=== PATIENT | female | born 1980 | race Caucasian/White ===

== ENCOUNTER 2018-08-21 18:52 | Inpatient (IN) | payer MEDICAID ==
[~2018-08-21] VITALS: Ht 160 cm; Wt 97.9 kg
[2018-08-21] MEDS ORDERED: SODIUM CHLORIDE 0.9% 1L BAG IV* STA (19:03)
[2018-08-21] MEDS ORDERED: ACETAMINOPHEN 650MG/20.3ML CUP NGT STA (19:03)
[2018-08-21] MEDS ORDERED: METHYLPREDNISOLONE 125 MG INJ IV STA (19:18)
[2018-08-21] MEDS ORDERED: LEVALBUTEROL (NEB) 1.25 MG/0.5 ML AMP INH STA (19:18)
[2018-08-21] MEDS ORDERED: IPRATROPIUM (NEB) 0.5 MG/2.5 ML AMP NEB STA (19:18)
--- NOTE | 2018-08-21 19:20 | ERD ---
ER Documentation Chief Complaint Chief Complaint sob/asthma x 1 day HPI The patient is a 38-year-old female, presenting to the ER because of acute dyspnea/nasal congestion/sore throat/cough for 1 day. She does not know that she had a fever until she goes to the ER she denies chest pain, abdominal pain, vomiting, dysuria, diarrhea.. She does not smoke, drinks socially, denies illicit drug Medical history: Asthma Past surgical history: None ROS All systems reviewed and are negative except as per history of present illness. Allergies Allergies: Coded Allergies: No Known Drug Allergies (Verified Allergy, Unknown, 08/21/18) Physical Exam Vitals Vital Signs Date Temp Pulse Resp B/P (MAP) Pulse Ox O2 O2 Flow FiO2 Time Delivery Rate 08/21/18 92 2.0 27 19:33 08/21/18 133 22 92 Nasal 2.0 19:29 Cannula 08/21/18 101.9 19:27 08/21/18 101.9 133 26 215/85 91 19:00 (128) Physical Exam Const: No acute distress. Head: Atraumatic. Eyes: Normal Conjunctiva. ENT: Normal External Ears, Nose and Mouth. Neck: Full range of motion. No meningismus. Resp: Bilateral expiratory wheezes, tachypneic Cardio: Regular tachycardic Abd: Soft, non distended, normal bowel sounds, non tender. Skin: No petechiae or rashes. Back: No midline or flank tenderness. Ext: No cyanosis, or edema. No calf tenderness Neur: Awake and alert. No focal deficit Psych: Normal Mood and Affect. Result Diagram: 08/21/18191308/21/181913 Results 24 hrs Laboratory Tests Test 08/21/18 19:14 08/21/18 19:40 08/21/18 19:47 08/21/18 19:59 White Blood Count 16.1 10^3/ul Red Blood Count 4.88 10^6/ul Hemoglobin 12.7 g/dl Hematocrit 40.7 % Mean Corpuscular 83.4 fl Volume Mean Corpuscular 26.0 pg Hemoglobin Mean Corpuscular 31.2 g/dl Hemoglobin Concent Red Cell 14.8 % Distribution Width Platelet Count 403 10^3/UL Mean Platelet 9.0 fl Volume Immature 0.600 % Granulocytes % Neutrophils % 89.2 % Lymphocytes % 6.3 % Monocytes % 2.6 % Eosinophils % 0.8 % Basophils % 0.5 % Nucleated Red Blood 0.0 /100WBC Cells % Immature 0.100 10^3/ul Granulocytes # Neutrophils # 14.4 10^3/ul Lymphocytes # 1.0 10^3/ul Monocytes # 0.4 10^3/ul Eosinophils # 0.1 10^3/ul Basophils # 0.1 10^3/ul Nucleated Red Blood 0.0 10^3/ul Cells # Prothrombin Time 15.1 Sec Prothrombin Time 1.2 Ratio INR International 1.18 Normalized Ratio Activated 27.2 Sec Partial Thromboplas t Time D-Dimer 479.17 ng/ml D-Dimer Comment Sodium Level 136 mmol/L Potassium Level 4.2 mmol/L Chloride Level 101 mmol/L Carbon Dioxide 23 mmol/L Level Anion Gap 12 Blood Urea Nitrogen 5 mg/dl Creatinine 0.61 mg/dl Est Glomerular > 60 mL/min Filtrat Rate mL/min Glucose Level 185 mg/dl Calcium Level 9.0 mg/dl Total Bilirubin 0.7 mg/dl Direct Bilirubin 0.00 mg/dl Indirect Bilirubin 0.7 mg/dl Aspartate Amino 261 IU/L Transf (AST/SGOT) Alanine 120 IU/L Aminotransferase (A LT/SGPT) Alkaline 173 IU/L Phosphatase Troponin I < 0.012 ng/ml Total Protein 8.9 g/dl Albumin 4.2 g/dl Globulin 4.70 g/dl Albumin/Globulin 0.89 Ratio Bedside Urine pH 8.5 (LAB) Bedside Urine 2+ Protein (LAB) Bedside Urine Negative Glucose (UA) Bedside Urine Negative Ketones (LAB) Bedside Urine Blood Trace-intact Bedside Urine Negative Nitrite (LAB) Bedside Urine Trace Leukocyte Esterase (L POC Venous Lactate 2.2 mmol/L POC Beta HCG, NEGATIVE Qualitative Current Medications Medications Dose Sig/Luis Daniel Start Time Status Last (Trade) Ordered Route PRN Stop Time Admin Dose Reason Admin 650 mg ONCE STAT 08/21/18 DC 08/21/18 Acetaminophen NGT 19:03 19:27 (Tylenol 08/21/18 19:05 Liquid) Sodium 1,570 ml BOLUS OVER 2 08/21/18 DC 08/21/18 Chloride HOURS STAT 19:03 19:15 (NS) IV* 08/21/18 19:05 Ipratropium 0.5 mg ONCE STAT 08/21/18 DC 08/21/18 [place] NEB 19:18 19:29 (Atrovent 08/21/18 19:19 0.02% (Neb)) 125 mg ONCE STAT 08/21/18 DC 08/21/18 Methylprednis IV 19:18 19:27 olone Sodium 08/21/18 19:19 Succinate (Solu-Medrol) 1.25 mg ONCE STAT 08/21/18 DC 08/21/18 Levalbuterol INH 19:18 19:29 (Xopenex 08/21/18 19:19 Neb) 1.25 mg Q4H RESP 08/21/18 Levalbuterol THERAPY HHN 21:00 (Xopenex Neb) Ipratropium 0.5 mg Q4H RESP 08/21/18 [place] THERAPY HHN 21:00 (Atrovent 0.02% (Neb)) 30 mg Q12 IV 08/22/18 Methylprednis 06:00 olone Sodium Succinate (Solu-Medrol) 150 ml @ Q24H IVPB 08/21/18 Levofloxacin/ 100 mls/hr 20:00 Dextrose IV Flush 3 ml PER 08/21/18 (NS 3 ml) PROTOCOL IV 20:30 Ondansetron 4 mg Q6H PRN 08/21/18 HCl (Zofran IV 20:30 Inj) NAUSEA/VOMITI NG 650 mg Q6H PRN 08/21/18 Acetaminophen PO .PAIN 1-3 20:30 (Tylenol OR TEMP Tab) Docusate 100 mg Q12H PRN 08/21/18 Sodium PO 20:30 (Colace) .CONSTIPATION Bisacodyl 5 mg DAILY PRN 08/21/18 (Dulcolax) PO 20:30 .CONSTIPATION 40 mg DAILY@06 08/22/18 Pantoprazole PO 06:00 (Protonix Tab) Enoxaparin 40 mg DAILY SC 08/21/18 Sodium 20:30 (Lovenox) 40 mg ONCE ONCE 08/21/18 DC Pantoprazole IV 20:30 (Protonix 08/21/18 20:31 Iv) Ceftriaxone 50 ml @ ONCE ONCE 08/21/18 Sodium 100 mls/hr IVPB 20:30 08/21/18 20:59 Azithromycin 250 ml @ ONCE ONCE 08/21/18 250 mls/hr IVPB 20:30 08/21/18 21:29 Procedures/MDM [facility] [address] [address] Radiology Main Line: [phone] DIAGNOSTIC IMAGING REPORT Patient: AMILCAR WOLFE : 1980 Age: 38 Sex: F MR #: [id number] DOS: 08/21/18 1903 Ordering MD: YASMANY HUBER MD Location: E/R Room/Bed: PROCEDURE: XR Chest. CLINICAL INDICATION: chest pain TECHNIQUE: Single AP view of the chest were obtained COMPARISON: None FINDINGS: The heart and mediastinum are within normal limits. The pulmonary vasculature are unremarkable. The aorta is unremarkable. Ill-defined opacity is suspected in the retrocardiac space. There is a focus of plate atelectasis in the right mid lung. There is no visible effusion and there is no pneumothorax. There is no acute osseous abnormality. IMPRESSION: Suspected retrocardiac area of opacity could represent a focus of pneumonia. Right mid lung plate atelectasis. RPTAT: AA .Mayda Lopez MD, MD Date Time Electronically viewed and signed by .Mayda Lopez MD, MD on 08/21/2018 19:46 .J/ CC: YASMANY HUBER MD [id number] EKG: Read by emergency physician Rate/Rhythm: Sinus tachycardia 126 beats/min QRS, ST, T-waves: No ST elevation, no T inversion, LAE, low voltage Impression: Abnormal EKG MEDICAL MAKING DECISION: The patient is a 38-year-old female, presenting to the ER because of acute severe sepsis, acute pneumonia, acute hypoxemia. She was tr eated with ideal body weight normal saline IV fluid, Rocephin IV and systemic IV for acute sepsis due to pneumonia, Tylenol 650 mg p.o. for fever, Solu-Medrol 125 mg IV, Xopenex 1.25 mg and Atrovent 0.5 mg nebulizer for wheezing with good response. She responded to supplemental oxygen The differential diagnoses considered include but are not limited to asthma, COPD, pneumonia, pulmonary embolus, pleural effusion, congestive heart failure. MDM: Patient's infectious symptoms have not stabilized and the patient is at risk of rapid decompensation. The patient will be admitted for careful hydration, antibiotic therapy, and infectious source control. SEVERE SEPSIS CRITERIA: Infectious source: pna End organ damage indicated by: [Lactate > 2.0 mmol/L Acute Resp Failure (sat < 92% w/o oxygen) SEPSIS MANAGEMENT Time of recognition of severe sepsis: 8p 3 HOUR BUNDLE Blood cultures x 2 before broad-spectrum antibiotics: [Yes] 30 ml/kg NS bolus [Completed] Initial lactate []2.2 Repeat lactate Pending SEPTIC SHOCK ASSESSMENT: [No] lactic acid > 4.0 [No] Persistent hypotension (SBP < 90 or 40 mmHg drop, MAP < 65) despite 30 mL/kg IV fluid bolus CRITICAL CARE Critical care time [35] minutes Emergent fluid management while maintaining close respiratory support. Pr ovision of immediate and broad-spectrum antibiotic therapy. Simultaneous assessment for possible sources in order to direct targeted therapy. Consideration for invasive and chemical support to prevent cardiopulmonary collapse. Critical care time is independent of procedures performed. Departure Diagnosis: Primary Impression: Severe sepsis Additional Impressions: PNA (pneumonia) Hypoxemia Abnormal LFTs Condition: Stable Comments I discussed the findings with the patient. I discussed the patient with Dr Munoz at 8:10p , who was made aware of the lab, the treatment, the patient condition. The patient is admitted to Tel Disclaimer: Inadvertent spelling and grammatical errors are likely due to EHR/dictation software use and do not reflect on the overall quality of patient care. Also, please note that the electronic time recorded on this note does not necessarily reflect the actual time of the patient encounter. YASMANY HUBER MD August 21, 2018 19:20
--- NOTE | 2018-08-21 20:07 | HP ---
Date/Time of Note Date/Time of Note DATE: 08/21/18 TIME: 20:07 Assessment/Plan VTE Prophylaxis SCD applied (from Nsg): Yes Pharmacological prophylaxis: NA/contraindicated Pharm contraindication: low risk/ambulating Lines/Catheters IV Catheter Type (from Nrsg): Saline Lock Assessment/Plan Hospital Course This is a 38-year-old female being admitted to the telemetry floor for: #1 acute on chronic asthma exacerbation: Patient did improve with steroids and nebulizer treatment in the emergency department. Continue nebulizers and steroids. Protonix. IV antibiotics for underlying pneumonia. #2 hypoxia: Likely secondary to underlying asthma exacerbation and concurrent pneumonia. We will check a stat ABG. #3 Severe sepsis: Secondary to underlying community acquired pneumonia. Cultures pending. Patient did receive ceftriaxone and azithromycin in the emergency department. Will initiate the patient on Levaquin 750 mg every 24 hours. Trend lactic acid levels #4 Community aquired pna: levaquin #5 transaminitis: Likely secondary to underlying sepsis, will check a right upper quadrant ultrasound for completeness sake. #6 obesity: We will check hemoglobin A 1C, lipid panel, TSH #7 tobacco use: Patient does smoke occasionally, encourage cessation especially given her underlying asthma #8 DVT and GI prophylaxis: Lovenox, Protonix Further treatment strategy will be implemented as per the clinical course. Result Diagram: 08/21/18191308/21/181913 Results 24hrs Laboratory Tests Test 08/21/18 19:14 08/21/18 19:40 08/21/18 19:47 08/21/18 19:59 White Blood Count 16.1 H Red Blood Count 4.88 Hemoglobin 12.7 Hematocrit 40.7 Mean Corpuscular 83.4 Volume Mean Corpuscular 26.0 L Hemoglobin Mean Corpuscular 31.2 L Hemoglobin Concent Red Cell 14.8 H Distribution Width Platelet Count 403 Mean Platelet 9.0 Volume Immature 0.600 H Granulocytes % Neutrophils % 89.2 H Lymphocytes % 6.3 L Monocytes % 2.6 Eosinophils % 0.8 Basophils % 0.5 Nucleated Red 0.0 Blood Cells % Immature 0.100 H Granulocytes # Neutrophils # 14.4 H Lymphocytes # 1.0 Monocytes # 0.4 Eosinophils # 0.1 Basophils # 0.1 Nucleated Red 0.0 Blood Cells # Prothrombin Time 15.1 H Prothrombin Time 1.2 Ratio INR International 1.18 Normalized Ratio Activated 27.[address] Time D-Dimer 479.17 H D-Dimer Comment Sodium Level 136 Potassium Level 4.2 Chloride Level 101 Carbon Dioxide 23 Level Anion Gap 12 Blood Urea 5 L Nitrogen Creatinine 0.61 Est Glomerular > 60 Filtrat Rate mL/min Glucose Level 185 Calcium Level 9.0 Total Bilirubin 0.7 Direct Bilirubin 0.00 Indirect Bilirubin 0.7 Aspartate Amino 261 H Transf (AST/SGOT) Alanine 120 H Aminotransferase ( ALT/SGPT) Alkaline 173 H Phosphatase Troponin I < 0.012 Total Protein 8.9 H Albumin 4.2 Globulin 4.70 H Albumin/Globulin 0.89 Ratio Bedside Urine pH 8.5 (LAB) Bedside Urine 2+ H Protein (LAB) Bedside Urine Negative Glucose (UA) Bedside Urine Negative Ketones (LAB) Bedside Urine Trace-intact H Blood Bedside Urine Negative Nitrite (LAB) Bedside Urine Trace H Leukocyte Esterase (L POC Venous Lactate 2.2 *H POC Beta HCG, NEGATIVE Qualitative HPI/ROS Admit Date/Time Admit Date/Time Hx of Present Illness Chief complaint: Shortness of breath, sore throat cough This is a 38-year-old female who presented to the ER with complaints of acute dyspnea/nasal congestion/sore throat/cough for 1 day. She does not know that she had a fever until she got to the ER. She does report increased work of breathing. She ran out of her home inhaler. She denies chest pain, abdominal pain, vomiting, dysuria, diarrhea.. She does not smoke, drinks socially, denies illicit drug. She does report having sick contacts at home her daughter. She does not report any recent travel. Allergies: NKDA Medications: See NAGA HURTADO Const: As per HPI Eyes : No pain discharge or redness or change in visual acuity ENT: No pain, sore throat, congestion, congestion, dysphagia or discharge Respiratory: As per HPI Cardiovascular: No chest pain, palpitation, PND, or edema GI : no change in appetite, abdominal pain, nausea, vomiting, diarrhea, constipation, or change in the color his stool Genitourinary: No dysuria, hematuria, flank pain , discharge or CVA tenderness Musculoskeletal: No joint pain, back pain, neck pain, restricted range of motion in neck or joints Skin: No rash, bruising or hives Neuro: No headache, dizziness, syncope, seizure, focal weakness Endocrine: No polyuria, polydipsia, temperature intolerance Psych: No hallucination, depression, anxiety or suicidal ideation PMH/Family/Social Past Medical History Asthma Medications Current Medications Levalbuterol (Xopenex Neb) 1.25 mg Q4H RESP THERAPY HHN ; Start 08/21/18 at 21:00; Status UNV Ipratropium [place] (Atrovent 0.02% (Neb)) 0.5 mg Q4H RESP THERAPY HHN ; Start 08/21/18 at 21:00; Status UNV Methylprednisolone Sodium Succinate (Solu-Medrol) 30 mg Q12 IV ; Start 08/22/18 at 06:00; Status UNV Levofloxacin/ Dextrose 150 ml @ 100 mls/hr Q24H IVPB ; Start 08/21/18 at 20:00; Status UNV Coded Allergies: No Known Drug Allergies (Verified Allergy, Unknown, 08/21/18) Past Surgical History Past Surgical Hx: no surgical history Family History Significant Family History: no pertinent family hx Social History Alcohol Use: occasionally Smoking Status: Current some day smoker Drug Use: none Exam/Review of Systems Vital Signs Vitals Vital Signs Date Temp Pulse Resp B/P (MAP) Pulse Ox O2 O2 Flow FiO2 Time Delivery Rate 08/21/18 92 2.0 27 19:33 08/21/18 133 22 Nasal 19:29 Cannula 08/21/18 101.9 19:27 08/21/18 215/85 19:00 (128) Exam Exam General: Currently lying in bed in no acute distress HEENT: Atraumatic, normocephalic. The pupils are equal, round and reactive. Extraocular motor are intact Neck: Supple with full range of motion. No rigidity or meningismus Chest: Nontender Lungs: Decreased air movement bilaterally, diminished breath sounds bilaterally Heart: Sinus tachycardia Abdomen: Obese, soft , nontender, nondistended , bowel sounds are present. No guarding no rebound tenderness , No masses or organomegaly. No costovertebral temporal angle mass Extremities: Normal to inspection, no edema no cyanosis Neurologic: Normal mental status, speech normal, cranial nerves II through XII are intact, motor and sensory are intact, no focal weakness Additional Comments PROCEDURE: XR Chest. CLINICAL INDICATION: chest pain TECHNIQUE: Single AP view of the chest were obtained COMPARISON: None FINDINGS: The heart and mediastinum are within normal limits. The pulmonary vasculature are unremarkable. The aorta is unremarkable. Ill-defined opacity is suspected in the retrocardiac space. There is a focus of plate atelectasis in the right mid lung. There is no visible effusion and there is no pneumothorax. There is no acute osseous abnormality. IMPRESSION: Suspected retrocardiac area of opacity could represent a focus of pneumonia. Right mid lung plate atelectasis. RPTAT: AA .Mayda Lopez MD, Date Time Electronically viewed and signed by .Mayad Lopez MD, on 08/21/2018 19:46 .J/ CC: YASMANY HUBER MD [id number] TG NEWSOME August 21, 2018 20:07
[2018-08-21] MEDS ORDERED: BISACODYL (EC) 5 MG TAB PO PRN (20:30)
[2018-08-21] MEDS ORDERED: CEFTRIAXONE 1 GM/50 ML (PMX) 50 ML IVPB ONE (20:30)
[2018-08-21] MEDS ORDERED: DOCUSATE SODIUM 100 MG CAP PO PRN (20:30)
[2018-08-21] MEDS ORDERED: PANTOPRAZOLE 40 MG INJ IV ONE (20:30)
[2018-08-21] MEDS ORDERED: ONDANSETRON 4 MG INJ IV PRN (20:30)
[2018-08-21] MEDS ORDERED: AZITHROMYCIN 500MG/NS (PMX) 250 ML IVPB ONE (20:30)
[2018-08-21] MEDS ORDERED: NACL 0.9% 3 ML SYG IV SCH (20:30)
[2018-08-21] MEDS: ENOXAPARIN 40 MG/0.4 ML SYG SC SCH (20:30)
[2018-08-21] MEDS: LEVOFLOXACIN 750MG/D5W (PMX) 150 ML IVPB SCH (20:44)
[2018-08-21] MEDS ORDERED: LORAZEPAM 2 MG INJ IV PRN (21:30)
[2018-08-21] MEDS ORDERED: LEVALBUTEROL (NEB) 1.25 MG/0.5 ML AMP HHN PRN (21:30)
[2018-08-21] MEDS: IPRATROPIUM (NEB) 0.5 MG/2.5 ML AMP HHN SCH (21:57)
[2018-08-21] MEDS: LEVALBUTEROL (NEB) 1.25 MG/0.5 ML AMP HHN SCH (21:57)
[2018-08-21] MEDS: ACETAMINOPHEN 325 MG TAB PO PRN (23:31)
[2018-08-22] VITALS (8 sets, daily range): BP systolic 144–176; BP diastolic 68–76; PULSE 88–112; RESP 16–18; Ht 160 cm; Wt 97.9 kg
[2018-08-22] MEDS: IPRATROPIUM (NEB) 0.5 MG/2.5 ML AMP HHN SCH ×6 (00:39→21:18)
[2018-08-22] MEDS: LEVALBUTEROL (NEB) 1.25 MG/0.5 ML AMP HHN SCH ×6 (00:40→21:18)
[2018-08-22] MEDS: PANTOPRAZOLE (EC) 40 MG TAB PO SCH (06:13)
[2018-08-22] MEDS: ACETAMINOPHEN 325 MG TAB PO PRN ×2 (06:13→17:10)
[2018-08-22] MEDS: METHYLPREDNISOLONE 40 MG INJ IV SCH ×2 (06:13→22:24)
[2018-08-22] MEDS ORDERED: IOHEXOL 100 ML ONE (07:45)
[2018-08-22] MEDS ORDERED: SOD CHLORIDE 0.9% 100 ML ONE (07:45)
[2018-08-22] MEDS: ENOXAPARIN 40 MG/0.4 ML SYG SC SCH (10:19)
[2018-08-22] MEDS ORDERED: GLUCOSE GEL 15 GRAM TUBE PO PRN ×2 (12:00)
[2018-08-22] MEDS ORDERED: GLUCAGON 1 MG INJ IM PRN (12:00)
[2018-08-22] MEDS ORDERED: DEXTROSE 50% 50 ML SYRINGE IV PRN ×2 (12:00)
[2018-08-22] MEDS ORDERED: GLUCOSE GEL 15 GRAM TUBE BUCCAL PRN (12:00)
[2018-08-22] MEDS: INSULIN ASPART [NOVOLOG] 3 ML PEN SC SCH ×3 (12:34→21:00)
--- NOTE | 2018-08-22 16:57 | PN ---
Date/Time of Note Date/Time of Note DATE: 08/22/18 TIME: 16:52 Assessment/Plan VTE Prophylaxis Risk score (from Nsg)>0 risk: 2 SCD applied (from Nsg): Yes Pharmacological prophylaxis: LMWH Lines/Catheters IV Catheter Type (from Nrsg): Saline Lock Assessment/Plan Assessment/Plan Morbidly obese 38-year-old woman with newly diagnosed diabetes admitted for acute pneumonia and asthma exacerbation. # acute asthma exacerbation: Patient did improve with steroids and nebulizer treatment in the emergency department. Continue nebulizers and steroids. Protonix. IV antibiotics for underlying pneumonia. #Diabetes mellitus - By random glucose >200 and elevated HgbA1C - Will ask Nia to see her - Likely discharge on metformin. # Community-acquired pneumonia: #Severe sepsis - Started on levaquin. Will continue this for 5-7 days. # transaminitis: - Likely due to sepsis plus fatty liver. # tobacco use: Patient does smoke occasionally, encourage cessation especially given her underlying asthma # DVT and GI prophylaxis: Lovenox, Protonix Result Diagram: 08/22/18 0749 08/22/18 0748 Subjective 24 Hr Interval Summary Free Text/Dictation No acute overnight events. Patient is feeling better. Wheezing has resolved, now only on 2L NC. Exam/Review of Systems Exam Vitals Vital Signs Date Temp Pulse Resp B/P (MAP) Pulse Ox O2 O2 Flow FiO2 Time Delivery Rate 08/22/18 94 2.0 16:17 08/22/18 103 16:01 08/22/18 98.5 16 152/76 12:07 (101) 08/22/18 Nasal 09:28 Cannula 08/21/18 21 21:58 Exam General: Obese woman in bed, no acute distress. HEENT: Atraumatic, normocephalic. The pupils are equal, round and reactive. Extraocular motor are intact Neck: Supple with full range of motion. No rigidity or meningismus Chest: Nontender Lungs: Mild wheezing bilaterally. Breathing comfortably on nasal cannula. Heart: Sinus tachycardia Abdomen: Obese, soft , nontender, nondistended , bowel sounds are present. No guarding no rebound tenderness , No masses or organomegaly. No costovertebral temporal angle mass Extremities: Normal to inspection, no edema no cyanosis Results Results 24hrs Laboratory Tests Test 08/21/18 19:14 5/27/19 19:40 08/21/18 19:47 08/21/18 19:57 White Blood 16.1 H Count Red Blood Count 4.88 Hemoglobin 12.7 Hematocrit 40.7 Mean Corpuscular 83.4 Volume Mean Corpuscular 26.0 L Hemoglobin Mean Corpuscular 31.2 L Hemoglobin Kathy nt Red Cell 14.8 H Distribution Width Platelet Count 403 Mean Platelet 9.0 Volume Immature 0.600 H Granulocytes % Neutrophils % 89.2 H Lymphocytes % 6.3 L Monocytes % 2.6 Eosinophils % 0.8 Basophils % 0.5 Nucleated Red 0.0 Blood Cells % Immature 0.100 H Granulocytes # Neutrophils # 14.4 H Lymphocytes # 1.0 Monocytes # 0.4 Eosinophils # 0.1 Basophils # 0.1 Nucleated Red 0.0 Blood Cells # Prothrombin Time 15.1 H Prothrombin Time 1.2 Ratio INR 1.18 International Normalized Ratio Activated 27.2 Partial Thrombop last Time D-Dimer 479.17 H D-Dimer Comment Sodium Level 136 Potassium Level 4.2 Chloride Level 101 Carbon Dioxide 23 Level Anion Gap 12 Blood Urea 5 L Nitrogen Creatinine 0.61 Est Glomerular > 60 Filtrat Rate mL/min Glucose Level 185 Calcium Level 9.0 Total Bilirubin 0.7 Direct Bilirubin 0.00 Indirect 0.7 Bilirubin Aspartate Amino 261 H Transf (AST/SGOT ) Alanine 120 H Aminotransferase (ALT/SGPT) Alkaline 173 H Phosphatase Troponin I < 0.012 Total Protein 8.9 H Albumin 4.2 Globulin 4.70 H Albumin/Globulin 0.89 Ratio Bedside Urine pH 8.5 (LAB) Bedside Urine 2+ H Protein (LAB) Bedside Urine Negative Glucose (UA) Bedside Urine Negative Ketones (LAB) Bedside Urine Trace-intact H Blood Bedside Urine Negative Nitrite (LAB) Bedside Urine Trace H Leukocyte Estera se (L POC Venous 2.2 *H Lactate Blood Gas Blood arterial Specimen Source Arterial Blood 08/21/2018 8:55: Date Drawn 24 PM Arterial Blood 7.471 H pH (Temp corrected) Arterial Blood 31.7 L pCO2 (Temp correct) Arterial Blood 54.1 *L pO2 (Temp corrected) Arterial Blood 22.6 HCO3 Arterial Blood -0.3 Base Excess Arterial Blood 89.7 L Oxygen Saturatio n Minh Test ACCEPTAB Arterial Blood Right Radial Gas Puncture Site Arterial 0.7 Blood Carboxyhem oglobin Arterial Blood 0.3 Methemoglobin Blood Gas A-a O2 100.9 H Differential Oxyhemoglobin 88.8 L Percent Blood Gas 37.0 Temperature Blood Gas Actual 21 Respiration Rate Blood Gas NASAL CANNULA Modality FiO2 27.0 Blood Gas JEROD Lucas MD Critical Value Read Back Blood Gas KB Notified Whom Blood Gas 08/21/2018 9:05: Notified Time 55 PM Test 08/21/18 19:59 08/21/18 21:19 08/21/18 23:43 08/22/18 05:39 POC Beta HCG, NEGATIVE Qualitative Lactic Acid 1.8 2.1 *H Level Hemoglobin A1c 7.7 H Magnesium Level 2.0 Triglycerides 142 Level Cholesterol 190 Level LDL Cholesterol, 140 Calculated HDL Cholesterol 22 L Cholesterol/HDL 8.6 Ratio Thyroid 2.190 Stimulating Hormone (TSH) Test 08/22/18 07:48 08/22/18 07:49 08/22/18 10:51 08/22/18 12:33 Sodium Level 136 Potassium Level 4.3 Chloride Level 105 Carbon Dioxide 23 Level Anion Gap 8 Blood Urea 8 Nitrogen Creatinine 0.65 Est Glomerular > 60 Filtrat Rate mL/min Glucose Level 307 H Calcium Level 8.8 Total Bilirubin 0.4 Direct Bilirubin 0.00 Indirect 0.4 Bilirubin Aspartate Amino 110 H Transf (AST/SGOT ) Alanine 90 H Aminotransferase (ALT/SGPT) Alkaline 132 H Phosphatase Total Protein 7.8 # Albumin 3.7 Globulin 4.10 H Albumin/Globulin 0.90 Ratio Procalcitonin 0.30 H White Blood 16.4 H Count Red Blood Count 4.07 L Hemoglobin 10.9 L Hematocrit 33.9 L Mean Corpuscular 83.3 Volume Mean Corpuscular 26.8 L Hemoglobin Mean Corpuscular 32.2 Hemoglobin Kathy nt Red Cell 15.0 H Distribution Width Platelet Count 344 Mean Platelet 9.4 Volume Immature 1.000 H Granulocytes % Neutrophils % 91.6 H Lymphocytes % 4.8 L Monocytes % 2.4 Eosinophils % 0.0 Basophils % 0.2 Nucleated Red 0.0 Blood Cells % Immature 0.170 H Granulocytes # Neutrophils # 15.0 H Lymphocytes # 0.8 Monocytes # 0.4 Eosinophils # 0.0 Basophils # 0.0 Nucleated Red 0.0 Blood Cells # Bedside Glucose 328 H 285 H Medications Medication Current Medications Levalbuterol (Xopenex Neb) 1.25 mg Q4H RESP THERAPY HHN Last administered on 08/22/18 16:16; Admin Dose 1.25 MG; Start 08/21/18 at 21:00 Ipratropium [place] (Atrovent 0.02% (Neb)) 0.5 mg Q4H RESP THERAPY HHN Last administered on 08/22/18 16:16; Admin Dose 0.5 MG; Start 08/21/18 at 21:00 Methylprednisolone Sodium Succinate (Solu-Medrol) 30 mg Q12 IV Last adminis tered on 08/22/18 06:13; Admin Dose 30 MG; Start 08/22/18 at 06:00 Levofloxacin/ Dextrose 150 ml @ 100 mls/hr Q24H IVPB Last administered on 08/21/18 20:44; Admin Dose 100 MLS/HR; Start 08/21/18 at 20:00 IV Flush (NS 3 ml) 3 ml PER PROTOCOL IV ; Start 08/21/18 at 20:30 Ondansetron HCl (Zofran Inj) 4 mg Q6H PRN IV NAUSEA/VOMITING; Start 08/21/18 at 20:30 Acetaminophen (Tylenol Tab) 650 mg Q6H PRN PO .PAIN 1-3 OR TEMP Last administered on 08/22/18 06:13; Admin Dose 650 MG; Start 08/21/18 at 20:30 Docusate Sodium (Colace) 100 mg Q12H PRN PO .CONSTIPATION; Start 08/21/18 at 20:30 Bisacodyl (Dulcolax) 5 mg DAILY PRN PO .CONSTIPATION; Start 08/21/18 at 20:30 Pantoprazole (Protonix Tab) 40 mg DAILY@06 PO Last administered on 08/22/18at 06:13; Admin Dose 40 MG; Start 08/22/18 at 06:00 Enoxaparin Sodium (Lovenox) 40 mg DAILY SC Last administered on 08/22/18 10:19; Admin Dose 40 MG; Start 08/21/18 at 20:30 Levalbuterol (Xopenex Neb) 1.25 mg Q2H RESP THERAPY PRN HHN SHORTNESS OF BREAT H; Start 08/21/18 at 21:30 Lorazepam (Ativan) 0.5 mg Q12 PRN IV AGITATION/ANXIETY; Start 08/21/18 at 21:30 Diagnostic Test (Pha) (Accu-Chek) 1 ea 02 XX ; Start 08/23/18 at 02:00 Insulin Aspart (Novolog Insulin Pen) NOVOLOG *MODERATE* ALGORITHM WITH MEALS BEDTIME SC Last administered on 08/22/18at 12:34; Admin Dose 8 UNIT; Start 08/22/18 at 12:30 Miscellaneous Information 1 ea NOTE XX ; Start 08/22/18 at 12:00 Glucose (Glutose) 15 gm Q15M PRN PO DECREASED GLUCOSE; Start 08/22/18 at 12:00 Glucose (Glutose) 22.5 gm Q15M PRN PO DECREASED GLUCOSE; Start 08/22/18 at 12:00 Dextrose (D50w Syringe) 25 ml Q15M PRN IV DECREASED GLUCOSE; Start 08/22/18 at 12:00 Dextrose (D50w Syringe) 50 ml Q15M PRN IV DECREASED GLUCOSE; Start 08/22/18 at 12:00 Glucagon (Glucagen) 1 mg Q15M PRN IM DECREASED GLUCOSE; Start 08/22/18 at 12:00 Glucose (Glutose) 15 gm Q15M PRN BUCCAL DECREASED GLUCOSE; Start 08/22/18 at 12:00 JOHN RUSHING MD August 22, 2018 16:57
[2018-08-22] MEDS: LEVOFLOXACIN 750MG/D5W (PMX) 150 ML IVPB SCH (22:25)
[2018-08-23] VITALS: BP 178/85; PULSE 106; RESP 18
[2018-08-23] MEDS: IPRATROPIUM (NEB) 0.5 MG/2.5 ML AMP HHN SCH ×6 (01:14→21:38)
[2018-08-23] MEDS: LEVALBUTEROL (NEB) 1.25 MG/0.5 ML AMP HHN SCH ×6 (01:14→21:38)
[2018-08-23] MEDS: ACCU-CHEK XX SCH (02:00)
[2018-08-23 03:36] VITALS: BP 138/70; PULSE 106; RESP 22
[2018-08-23 03:43] VITALS: BP 151/69; PULSE 104; RESP 20
[2018-08-23] MEDS: PANTOPRAZOLE (EC) 40 MG TAB PO SCH (05:46)
[2018-08-23 07:26] VITALS: BP 136/72; PULSE 98; RESP 18
[2018-08-23] MEDS: METHYLPREDNISOLONE 40 MG INJ IV SCH (09:21)
[2018-08-23] MEDS: INSULIN ASPART [NOVOLOG] 3 ML PEN SC SCH ×4 (09:22→21:00)
[2018-08-23] MEDS: ENOXAPARIN 40 MG/0.4 ML SYG SC SCH (09:23)
--- NOTE | 2018-08-23 10:16 | PN ---
Date/Time of Note Date/Time of Note DATE: 08/23/18 TIME: 10:14 Assessment/Plan VTE Prophylaxis Risk score (from Ns)>0 risk: 2 SCD applied (from Ns): Yes Pharmacological prophylaxis: NA/contraindicated Pharm contraindication: low risk/ambulating Lines/Catheters IV Catheter Type (from Nrs): Saline Lock Assessment/Plan Assessment/Plan Morbidly obese 38-year-old woman with newly diagnosed diabetes admitted for acute pneumonia and asthma exacerbation. # acute asthma exacerbation: Patient did improve with steroids and nebulizer treatment in the emergency department. Continue nebulizers and steroids. Protonix. IV antibiotics for underlying pneumonia. #Diabetes mellitus - By random glucose >200 and elevated HgbA1C - Will ask Nia to see her - Likely discharge on metformin. # Community-acquired pneumonia: #Severe sepsis - Started on levaquin. Will continue this for 5-7 days. # transaminitis: - Likely due to sepsis plus fatty liver. # tobacco use: Patient does smoke occasionally, encourage cessation especially given her underlying asthma # DVT and GI prophylaxis: Lovenox, Protonix Dispo: Anticipate discharge in 24-48 hours. Result Diagram: 08/22/18 0749 08/22/18 0748 Subjective 24 Hr Interval Summary Free Text/Dictation No acute overnight events. Patient still on 2L NC. Able to ambulate comfortably on room air but saturation drops to 92% Mild dry cough. Still very sleepy and fatigued. Exam/Review of Systems Exam Vitals Vital Signs Date Temp Pulse Resp B/P (MAP) Pulse Ox O2 O2 Flow FiO2 Time Delivery Rate 08/23/18 3.0 08:20 08/23/18 98 20 99 Nasal 08:20 Cannula 08/23/18 98.8 136/72 07:26 (93) 08/21/18 21 21:58 Intake and Output 08/22/18 08/22/18 08/23/18 1515:00 23:00 07:00 IntakeIntake Total 200 ml 750 ml 150 ml BalanceBalance 200 ml 750 ml 150 ml Exam General: Obese woman in bed, no acute distress. HEENT: Atraumatic, normocephalic. The pupils are equal, round and reactive. Extraocular motor are intact Neck: Supple with full range of motion. No rigidity or meningismus Chest: Nontender Lungs: Significant improvement in wheezing bilaterally. Breathing comfortably on room air. Heart: Sinus tachycardia Abdomen: Obese, soft , nontender, nondistended , bowel sounds are present. No guarding no rebound tenderness , No masses or organomegaly. No costovertebral temporal angle mass Extremities: Normal to inspection, no edema no cyanosis Results Results 24hrs Laboratory Tests Test 08/22/18 10:51 08/22/18 12:33 08/22/18 17:48 08/22/18 22:15 Bedside Glucose 328 H 285 H 230 H 176 Test 08/23/18 08:29 Bedside Glucose 201 Medications Medication Current Medications Levalbuterol (Xopenex Neb) 1.25 mg Q4H RESP THERAPY HHN Last administered on 08/23/18at 08:19; Admin Dose 1.25 MG; Start 08/21/18 at 21:00 Ipratropium [place] (Atrovent 0.02% (Neb)) 0.5 mg Q4H RESP THERAPY HHN Last administered on 08/23/18at 08:19; Admin Dose 0.5 MG; Start 08/21/18 at 21:00 Levofloxacin/ Dextrose 150 ml @ 100 mls/hr Q24H IVPB Last administered on 08/22/18at 22:25; Admin Dose 100 MLS/HR; Start 08/21/18 at 20:00 IV Flush (NS 3 ml) 3 ml PER PROTOCOL IV ; Start 08/21/18 at 20:30 Ondansetron HCl (Zofran Inj) 4 mg Q6H PRN IV NAUSEA/VOMITING; Start 08/21/18 at 20:30 Acetaminophen (Tylenol Tab) 650 mg Q6H PRN PO .PAIN 1-3 OR TEMP Last administered on 08/22/18at 17:10; Admin Dose 650 MG; Start 08/21/18 at 20:30 Docusate Sodium (Colace) 100 mg Q12H PRN PO .CONSTIPATION; Start 08/21/18 at 20:30 Bisacodyl (Dulcolax) 5 mg DAILY PRN PO .CONSTIPATION; Start 08/21/18 at 20:30 Pantoprazole (Protonix Tab) 40 mg DAILY@06 PO Last administered on 08/23/18at 05:46; Admin Dose 40 MG; Start 08/22/18 at 06:00 Enoxaparin Sodium (Lovenox) 40 mg DAILY SC Last administered on 08/23/18at 09:23; Admin Dose 40 MG; Start 08/21/18 at 20:30 Levalbuterol (Xopenex Neb) 1.25 mg Q2H RESP THERAPY PRN HHN SHORTNESS OF BREATH; Start 08/21/18 at 21:30 Lorazepam (Ativan) 0.5 mg Q12 PRN IV AGITATION/ANXIETY; Start 08/21/18 at 21:30 Diagnostic Test (Pha) (Accu-Chek) 1 ea 02 XX ; Start 08/23/18 at 02:00 Insulin Aspart (Novolog Insulin Pen) NOVOLOG *MODERATE* ALGORITHM WITH MEALS BEDTIME SC Last administered on 08/23/18at 09:22; Admin Dose 4 UNIT; Start 08/22/18 at 12:30 Miscellaneous Information 1 ea NOTE XX ; Start 08/22/18 at 12:00 Glucose (Glutose) 15 gm Q15M PRN PO DECREASED GLUCOSE; Start 08/22/18 at 12:00 Glucose (Glutose) 22.5 gm Q15M PRN PO DECREASED GLUCOSE; Start 08/22/18 at 12:00 Dextrose (D50w Syringe) 25 ml Q15M PRN IV DECREASED GLUCOSE; Start 08/22/18 at 12:00 Dextrose (D50w Syringe) 50 ml Q15M PRN IV DECREASED GLUCOSE; Start 08/22/18 at 12:00 Glucagon (Glucagen) 1 mg Q15M PRN IM DECREASED GLUCOSE; Start 08/22/18 at 12:00 Glucose (Glutose) 15 gm Q15M PRN BUCCAL DECREASED GLUCOSE; Start 08/22/18 at 12:00 Prednisone (Prednisone) 40 mg DAILY PO ; Start 08/24/18 at 09:00 JOHN RUSHING MD August 23, 2018 10:16
[2018-08-23 14:42] VITALS: BP 137/78; PULSE 107; RESP 18
[2018-08-23 19:31] VITALS: BP 161/87; PULSE 109; RESP 20
[2018-08-23] MEDS: LEVOFLOXACIN 750MG/D5W (PMX) 150 ML IVPB SCH (20:47)
[2018-08-23] MEDS: ACETAMINOPHEN 325 MG TAB PO PRN (22:45)
[2018-08-24 01:51] VITALS: BP 130/77; PULSE 97; RESP 20
[2018-08-24] MEDS: ACCU-CHEK XX SCH (01:53)
[2018-08-24] MEDS: LEVALBUTEROL (NEB) 1.25 MG/0.5 ML AMP HHN SCH ×3 (01:53→10:01)
[2018-08-24] MEDS: IPRATROPIUM (NEB) 0.5 MG/2.5 ML AMP HHN SCH ×3 (01:53→10:01)
[2018-08-24] MEDS: PANTOPRAZOLE (EC) 40 MG TAB PO SCH (05:27)
[2018-08-24 07:45] VITALS: BP 142/77; PULSE 102; RESP 18
[2018-08-24] MEDS ORDERED: predniSONE 20 MG TAB PO SCH (09:00)
[2018-08-24] MEDS: INSULIN ASPART [NOVOLOG] 3 ML PEN SC SCH ×2 (09:06→13:19)
[2018-08-24] MEDS: ENOXAPARIN 40 MG/0.4 ML SYG SC SCH (09:07)
[2018-08-24] MEDS ORDERED: LEVO750T8 PO (10:05)
[2018-08-24] MEDS ORDERED: PRED20TA PO (10:05)
[2018-08-24] MEDS ORDERED: METF500T3 PO (10:05)
[2018-08-24] MEDS ORDERED: ALBU18HF INHALATION (10:05)
--- NOTE | 2018-08-24 10:14 | PDOCDIS ---
Discharge Instructions DIAGNOSIS Discharge Diagnosis Asthma exacerbation, community-acquired pneumonia CONDITION [id number] Patient Condition: [id number] Good HOME CARE INSTRUCTIONS: [id number] Special Diet: [id number] Carbohydrate-controlled ACTIVITY: [id number] Activity Restrictions: [id number] No Restrictions FOLLOW UP/APPOINTMENTS Follow-up Plan 1. Take all medications as prescribed. Your meds will be sent to the [facility] on [address] [employer] ([address] [facility]) 2. Take seven more days of levofloxacin (an antibiotic) and prednisone (to relax the airways and prevent wheezing) 3. Take metformin to keep blood sugar under control. You must start eating a low carbohydrate diet as instructed. 4. Losing weight will cause several health benefits. It will make your diabetes easier to control, reduce back and knee arthritis pain, and reduce the risk of heart attack, stroke, and several types of cancer. At 165 lbs you will no longer be obese. At 140 lbs you will be at a healthy weight. Exercise is not necessary for weight loss, you can lose weight by eating less food. 5. For worsening wheezing or shortness of breath, use your albuterol (ventolin) inhaler. If you have severe shortness of breath at rest not relieved by the inhaler, return to the emergency room. JOHN RUSHING MD August 24, 2018 10:14
--- NOTE | 2018-08-24 18:14 | DS ---
Date/Time of Note Date/Time of Note DATE: 08/24/18 TIME: 18:11 Discharge Summary Admission/Discharge Info Admit Date/Time August 21, 2018 at 19:56 Discharge Date/Time August 24, 2018 at 14:22 Discharge Diagnosis Asthma exacerbation, community-acquired pneumonia Patient Condition: Good Hx of Present Illness Chief complaint: Shortness of breath, sore throat cough This is a 38-year-old female who presented to the ER with complaints of acute dyspnea/nasal congestion/sore throat/cough for 1 day. She does not know that she had a fever until she got to the ER. She does report increased work of breathing. She ran out of her home inhaler. She denies chest pain, abdominal pain, vomiting, dysuria, diarrhea.. She does not smoke, drinks socially, denies illicit drug. She does report her daughter has been sick at home with similar symptoms. She does not report any recent travel. Allergies: NKDA Medications: See [facility] Hospital Course For wheezing, she was started on IV solumedrol and prn albuterol/atrovent. Steroids were downgraded to prednisone 40mg daily which she tolerated well. She was started on levofloxacin for community-acquired pneumonia based on lobar infiltrate on CXR. Will be discharged on a 7 day course of this. She had newly diagnosed diabetes based on labs. Met with family educator Nia. Will discharge with metformin. Home Meds Active Scripts Albuterol Sulfate* (Ventolin HFA*) 18 Gm Hfa.aer.ad, 2 PUFF INHALATION Q4H PRN for WHEEZING, #1 INHALER Prov:JOHN RUSHING MD 08/24/18 Metformin Hcl* (Metformin Hcl* ER) 500 Mg Tab.sr.24h, 500 MG PO BID, #60 TAB 3 Refills Prov:JOHN RUSHING MD 08/24/18 Prednisone (Prednisone) 20 Mg Tab, 40 MG PO DAILY for 7 Days, #7 TAB Prov:JOHN RUSHING MD 08/24/18 Levofloxacin* (Levofloxacin*) 750 Mg Tablet, 750 MG PO DAILY for 7 Days, #7 TAB Prov:JOHN RUSHING MD 08/24/18 Follow-up Plan 1. Take all medications as prescribed. Your meds will be sent to the [facility] on [address] ([address]) 2. Take seven more days of levofloxacin (an antibiotic) and prednisone (to relax the airways and prevent wheezing) 3. Take metformin to keep blood sugar under control. You must start eating a low carbohydrate diet as instructed. 4. Losing weight will cause several health benefits. It will make your diabetes easier to control, reduce back and knee arthritis pain, and reduce the risk of heart attack, stroke, and several types of cancer. At 165 lbs you will no longer be obese. At 140 lbs you will be at a healthy weight. Exercise is not necessary for weight loss, you can lose weight by eating less food. 5. For worsening wheezing or shortness of breath, use your albuterol (ventolin) inhaler. If you have severe shortness of breath at rest not relieved by the inhaler, return to the emergency room. Primary Care Provider Not On Staff Doctor Time spent on discharge: > 30 minutes Pending Labs Laboratory Tests Test 08/23/18 20:58 08/24/18 01:42 08/24/18 08:52 08/24/18 10:14 Bedside 209 134 186 Glucose mg/dL (70-220) mg/dL (70-220) mg/dL (70-220) White Blood 12.1 Count 10^3/ul (4.8-1 0.8) Red Blood 4.16 Count 10^6/ul (4.20- 5.40) Hemoglobin 10.9 g/dl (12.0-16. 0) Hematocrit 34.8 % (37.0-47.0) Mean 83.7 Corpuscular fl (82.0-101.0 Volume ) Mean 26.2 Corpuscular pg (29.0-33.0) Hemoglobin Mean 31.3 Corpuscular g/dl (32.0-37. Hemoglobin Conc 0) ent Red Cell 15.4 Distribution % (11.5-14.5) Width Platelet Count 341 10^3/UL (140-4 15) Mean Platelet 9.0 Volume fl (7.4-10.4) Immature 0.700 Granulocytes % % (0.001-0.429 ) Neutrophils % 80.6 % (39.0-77.0) Lymphocytes % 14.1 % (15.0-51.0) Monocytes % 4.1 % (0.0-11.0) Eosinophils % 0.3 % (0.0-7.0) Basophils % 0.2 % (0.0-2.0) Nucleated Red 0.0 Blood Cells % /100WBC (0.0-0 .0) Immature 0.080 Granulocytes # 10^3/ul (0.0-0 .031) Neutrophils # 9.7 10^3/ul (1.6-7 .5) Lymphocytes # 1.7 10^3/ul (0.8-2 .9) Monocytes # 0.5 10^3/ul (0.3-0 .9) Eosinophils # 0.0 10^3/ul (0.0-0 .5) Basophils # 0.0 10^3/ul (0.0-0 .1) Nucleated Red 0.0 Blood Cells # 10^3/ul (0.0-0 .0) Sodium Level 136 mmol/L (135-14 4) Potassium 3.8 Level mmol/L (3.5-5. 1) Chloride Level 101 mmol/L (97-110 ) Carbon Dioxide 23 Level mmol/L (21-31) Anion Gap 12 (5-13) Blood Urea 13 Nitrogen mg/dl (7-20) Creatinine 0.66 mg/dl (0.44-1. 00) Est Glomerular > 60 Filtrat mL/min (>60) Rate mL/min Glucose Level 253 mg/dl (70-220) Calcium Level 8.3 mg/dl (8.4-10. 2) Phosphorus 3.6 Level mg/dl (2.5-4.9 ) Magnesium 1.9 Level mg/dl (1.7-2.5 ) Test 08/24/18 13:07 Bedside 226 Glucose mg/dL (70-220) JOHN RUSHING MD August 24, 2018 18:14
== END 2018-08-24 14:22 | disposition home or self-care (01) | DRG 871 ==
LOC: E/R 18:52 → TEL 19:56 → MS1 08-23 03:36
PROVIDERS: ADMIT Family Medicine; ATTEND Internal Medicine
PROC: 4A033R1 Measurement of Arterial Saturation, Peripheral, Percutaneous Approach (ICD-10-PCS; principal; 2018-08-21)
DX: A41.9 Sepsis, unspecified organism (principal); J18.9 Pneumonia, unspecified organism; J45.901 Unspecified asthma with (acute) exacerbation; R65.20 Severe sepsis without septic shock; Z72.0 Tobacco use; E66.01 Morbid (severe) obesity due to excess calories; E11.9 Type 2 diabetes mellitus without complications; Z68.38 Body mass index [BMI] 38.0-38.9, adult
CPT/HCPCS: 36600; 71045; 71275; 76705; 80048; 80053; 80061; 81003; 81025; 82803; 82962; 83036; 83605; 83735; 84100; 84145; 84443; 84484; 85025; 85378; 85610; 85730; 87400; 93005; 94640; 94664; 96374; J0696; J1650; J1815; J1956; J2920; J2930; J7030; J7512; Q9967